=== PATIENT | female | born 2000 | race Caucasian/White ===

== ENCOUNTER 2023-09-28 15:35 | Outpatient (AMB) | payer BC, SELFPAY ==
[2023-09-28 15:38] VITALS: BP 120/90; PULSE 99; O2SAT 100; BMI 28.5
--- NOTE | 2023-09-28 15:38 | A.OFFPC_ITS ---
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 Previous PCP at [facility]. Medical history significant for depression, anxiety. Also reports last night started with left lower eyelid stye. Patient has a therapist for her mental health. Denies SI. Interested in antidepressant/antianxiety medication. Due for Pap smear. No shortness of breath or chest pain. [facility] Surgical History History of ankle surgery Family History Mother Hypertension Paternal Grandfather Diabetes Father No problems noted. Social History Housing: House Patient Tobacco Use Status: Never used Tobacco service: No Current occupational status: employed Cognitive needs: No Hearing needs: No Vision needs: No Questionnaire PHQ-9 Over the last 2 weeks, how often have you been bothered by any of the following problems? 1. Little interest or pleasure in doing things: not at all 2. Feeling down, depressed, or hopeless: nearly every day 3. Trouble falling or staying asleep, or sleeping too much: more than half the days (sleeping too much) 4. Feeling tired or having little energy: nearly every day 5. Poor appetite or overeating: several days 6. Feeling bad about yourself - or that you are a failure or have let yourself or your family down: several days 7. Trouble concentrating on things, such as reading the newspaper or watching television: not at all 8. Moving or speaking so slowly that other people could have noticed. Or the opposite - being so fidgety or restless that you have been moving around a lot more than usual: not at all 9. Thoughts that you would be better off or of hurting yourself in some way: not at all Total score: 10 Depression Screening Interpretation: Positive Depression Screening Follow-up: Existing condition Depression Screening Done: Yes 71323 - PHQ-9 Billing: Yes Source: Developed by Drs. Yanick Chino, Brittany Oates, Liu Wagner and colleagues, with an educational linda from [employer]. Thrive Questionnaire Date Thrive assessed: 09/28/23 I am a: Patient What is your living situation today?: I have a steady place to live Within the past 12 months, did the food you bought not last and you didn't have the money to get more?: Never true Within the past 12 months, did you worry whether your food would run out before you got money to buy more?: Never true Do you have trouble paying for medicines?: No Do you have trouble getting transportation to medical appointments?: No Do you have trouble paying your heating and electricity bill?: No Do you have trouble taking care of your child, family member or friend?: No Do you have trouble with day-to-day activities such as bathing, preparing meals, shopping, managing finances, etc.?: No Are you currently unemployed and looking for a job?: No Are you interested in more education?: No Currently or been in a relationship where the following occur: no concerns reported AUDIT C Alcohol Use Questionnaire (AUDIT-C) 1. How often do you have a drink containing alcohol?: 2-4 times a month 2. How many drinks containing alcohol do you have on a typical day when you are drinking?: 3 or 4 3. How often do you have six or more drinks on one occasion?: Never Total Score: 3 Score Reviewed/Action Taken: Yes JACK-7 AMB Questionnaire JACK-7 Date JACK - 7 assessed: 09/28/23 Feeling nervous, anxious, or on edge: 1 = Several days Not being able to stop or control worryin = Several days Worrying too much about different things: 1 = Several days Trouble relaxin = Several days Being so restless that it is hard to sit still: 1 = Several days Becoming easily annoyed or irritable: 0 = Not at all Feeling afraid as if something awful might happen: 0 = Not at all Total JACK-7 score (0-4 normal; 5-9 mild; 10-14 moderate; 15-21 severe): 5 Source: Developed by Drs. Yanick Chino, Brittany Oates, Liu Wagner and colleagues, with an educational linda from [employer]. JACK-7 Assessment Billing JACK-7 Assessment Tool: JACK-7 Assessment 39209 Review of Systems Const Denies body aches, Denies chills, Denies fever(s) and Denies headache(s) Eyes Reports as per HPI, Denies blurry vision and Denies change in vision ENT Denies dizziness, Denies otalgia, Denies headache(s), Denies nasal discharge, Denies sinus pain and Denies sore throat Card Denies chest pain, Denies edema, Denies lightheadedness and Denies dyspnea Resp Denies cough, Denies dyspnea and Denies wheezing GI Denies abdominal pain, Denies constipation, Denies diarrhea, Denies nausea and Denies vomiting Denies dysuria Musc Denies myalgias Skin/Breast Denies rash Neuro Denies dizziness and Denies headache(s) Psych Reports anxiety and Reports depression Aller/Immun Denies wheezing Physical exam (Primary Care) Vital Signs: Last Vital Signs Pulse 99 09/28/23 15:38 BP 120/82 09/28/23 16:10 Pulse Ox 100 09/28/23 15:38 Oxygen Delivery Method Room Air 09/28/23 15:38 BMI result Body Mass Index 28.5 Tobacco/Smoking Status: Tobacco use Status Tobacco use date assessed 09/28/23 09/28/23 15:40 Patient Tobacco Use Status Never used Tobacco 09/28/23 15:40 PHQ-9: PHQ-9 Score PHQ-9: Total score 10 09/28/23 16:02 Depression Screening Interpretation: Positive Depression Screening Follow-up: Existing condition Thrive Assessment: Date of Thrive Assessment Date Thrive assessed 12/15/23 12/15/23 15:40 Currently or been in a relationship where the following occur: no concerns reported Const General: cooperative and no acute distress Orientation/consciousness: patient oriented x3 HENMT Head: Yes normocephalic and Yes atraumatic Ears: TM's normal bilaterally Face and sinus: Yes sinuses nontender Mouth: oropharynx normal and moist mucous membranes Throat: Yes posterior oropharynx normal Eyes Other: Left lower eyelid stye noted, no discharge, mild tenderness, very mild erythema, no need for antibiotic at this time Pupils: Equal, round and reactive pupils present EOM: EOMs intact bilaterally Neck Neck: Yes normal visual inspection, Yes full ROM and Yes no lymphadenopathy Thyroid: Thyroid normal Resp Effort & Inspection: normal respiratory effort and able to speak in complete sentences Auscultation: clear to auscultation bilaterally, no crackles, no rales, no rhonchi and no wheezes Cardio Rate: regular rate Rhythm: regular rhythm Heart sounds: S1 normal heart sound present, S2 normal heart sound present and no murmurs GI Palpation (GI): Soft to palpation, not firm, nontender, no guarding, not rigid and no hepatosplenomegaly Auscultation: normal bowel sounds General: No CVA tenderness Back/Spine/Pelvis Back: No CVA tenderness Skin General skin exam: no rashes or lesions noted Neuro General: patient oriented x3 Cranial nerves: Yes Equal, round and reactive pupils present Gait exam (Neuro): Normal gait present Extrem General: Yes full ROM and No edema Office Procedures Flu Questionnaire Does the patient have a severe egg allergy?: No Does the patient have severe life threatening allergies?: No Does the patient have a fever or illness today?: No Has the patient ever had Guillain-[place] Syndrome?: No Has the patient ever had any past reaction to a flu shot?: No Immunizations flu vacc [id number] 6mos up(PF) 60 mcg(15 mcgx4)/0.5 mL IM syringe Performing Provider: HEMA Cardenas [facility] [place] [facility] Administered by: ADITI Baez on 09/28/23 15:55 Dose Route Admin Location Dispensed Lot Number Expiration Date NDC Liquefied Pet[employer] 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 p.r.n., notify office next week if no improvement Signs and symptoms reviewed when to notify provider go to the emergency department (2) Cervical cancer screening: Code(s): Z12.4 - Encounter for screening for malignant neoplasm of cervix (3) control counseling: Code(s): Z30.09 - Encounter for other general counseling and advice on contraception Plan: [facility] referral (4) Anxiety: Code(s): F41.9 - Anxiety disorder, unspecified Plan: Start hydroxyzine 10 mg b.i.d. p.r.n.-educated about drowsiness Continue to follow-up with therapist (5) Depression: Code(s): F32.A - Depression, unspecified Plan: Start sertraline 25 mg daily-educated about possible adverse reactions and when to notify provider Continue with therapist Follow-up in 6 weeks Denies SI (6) Encounter to establish care: Code(s): Z76.89 - Persons encountering health services in other specified circumstances Orders: Orders Influenza [id number] Immunization 09/28/23 Z23 - Encounter for immunization Vitamin D 25-OH Total 09/28/23 Z76.89 - Persons encountering health services in other specified circumstances TSH reflex Free T4 09/28/23 Z76.89 - Persons encountering health services in other specified circumstances Comprehensive Met. Panel 09/28/23 Z76.89 - Persons encountering health services in other specified circumstances Complete Blood Count Auto Diff 09/28/23 Z76.89 - Persons encountering health services in other specified circumstances Referrals OTHER SPORTS OFFICIAL Referral Z12.4 - Encounter for screening for malignant neoplasm of cervix, Z30.09 - Encounter for other general counseling and advice on contraception Medications: New sertraline 25 mg PO DAILY 30 tabs 2RF F32.A - Depression, unspecified, F41.9 - Anxiety disorder, unspecified hydroxyzine HCl 10 mg PO BID PRN 14 tabs 0RF anxiety F41.9 - Anxiety disorder, unspecified Coding Level of Care Code New Pt Level 4 (49661) Diagnoses Hordeolum externum left lower eyelid H00.015 Cervical cancer screening Z12.4 control counseling Z30.09 Anxiety F41.9 Depression F32.A Encounter to establish care Z76.89 Additional Codes JACK-7 Assessment Billing - JACK-7 Assessment Tool: JACK-7 Assessment 69288 ([id number])
[2023-09-28 16:10] VITALS: BP 120/82
== END 2023-09-28 16:20 | disposition home or self-care (01) ==
PROVIDERS: PCP Nurse Practitioner Family; Visit Provider Nurse Practitioner Family
DX: H00.015 Hordeolum externum left lower eyelid (principal); Z30.09 Encounter for other general counseling and advice on contraception; F41.9 Anxiety disorder, unspecified; F32.A Depression, unspecified; Z76.89 Persons encountering health services in other specified circumstances
CPT/HCPCS: 90471; 90686; 96127; 99204

== ENCOUNTER 2023-11-15 13:16 | Outpatient (AMB) | payer OTHER, SELFPAY ==
[2023-11-15 13:18] VITALS: BP 122/64; BMI 29.2
--- NOTE | 2023-11-15 13:18 | A.OFFVIS_ITS ---
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 The patient tells me she was on control pills by her zoology technical officer in the past and they worked pretty good for her she would like some kind of pill again she has not fussy about which 1. She works at [employer] in the [employer] she thinks she gets a lot of exercise running around there she is sexually active and she did have sex yesterday but she used a condom. She says she uses condoms all the time. She sometimes gets some chest pains which she says she has been told has to do with anxiety and she does have some measures to deal with that. She does not smoke cigarettes she is nervous about her 1st Pap smear. [facility] Surgical History History of ankle surgery Family History Mother Hypertension Paternal Grandfather Diabetes Father No problems noted. Social History (Updated 11/15/23 @ 13:21 by Kristi Ellis MA) Housing: House Alcohol intake: current Alcohol intake frequency: a few times a month Alcohol type: wine Patient Tobacco Use Status: Never used Tobacco service: No Current occupational status: employed Cognitive needs: No Hearing needs: No Vision needs: No Female Reproductive History Menstrual Age of Menarche: 13 Duration of menses: 3-5 days Date of last menstrual period: 10/31/23 control method: none Total pregnancies: 0 Physical Exam Vital Signs: Last Vital Signs BP 122/64 11/15/23 13:18 BMI result Body Mass Index 29.2 Assessment & Plan Assessment & Plan (1) Cervical cancer screening: Code(s): Z12.4 - Encounter for screening for malignant neoplasm of cervix (2) control counseling: Code(s): Z30.09 - Encounter for other general counseling and advice on contraception (3) Encounter for screening examination for sexually transmitted disease: Code(s): Z11.3 - Encounter for screening for infections with a predominantly sexual mode of transmission (4) Well woman exam with routine gynecological exam: Code(s): Z01.419 - Encounter for gynecological examination (general) (routine) without abnormal findings Plan -----Discussed in this visit the following: healthy balanced diet, regular and consistent exercise, getting recommended health screens, doing the best she can for her particular health concerns, kegel exercises, pap smear screening and followup recommendations, mammography screening and SBE, normal changes in cycles in her life stage--- . Discussed the control pills and how to take them and what to do if she forgets and backup method she is planning on still using condoms and I applauded this effort discussed protection from STIs though that condoms do not fully protect from HSV but they protect from other things. She has a primary care provider appointment next week I recommended considering testing for STIs and she agreed so I ordered those and in the computer it appeared that she had fasting labs that have been ordered in August or September by her primary care provider so she will probably do those next week before she sees her primary care provider. We will see her in 3 months to see how she is doing on the pills and do a blood pressure check. Orders: Orders Bacterial Vaginosis Panel Today Z01.419 - Encounter for gynecological examination (general) (routine) without abnormal findings Hepatitis B Surface Antigen Today Z11.3 - Encounter for screening for infections with a predominantly sexual mode of transmission, Z12.4 - Encounter for screening for malignant neoplasm of cervix, Z30.09 - Encounter for other general counseling and advice on contraception, Z36.3 - Encounter for scree vee for malformations CT NG by PCR Today Z01.419 - Encounter for gynecological examination (general) (routine) without abnormal findings Pap Smear Today Z01.419 - Encounter for gynecological examination (general) (routine) without abnormal findings Hepatitis C Antibody Today Z11.3 - Encounter for screening for infections with a predominantly sexual mode of transmission, Z12.4 - Encounter for screening for malignant neoplasm of cervix, Z30.09 - Encounter for other general counseling and advice on contraception, Z36.3 - Encounter for screening for malformations HIV Ab/Ag Today Z11.3 - Encounter for screening for infections with a predominantly sexual mode of transmission, Z12.4 - Encounter for screening for malignant neoplasm of cervix, Z30.09 - Encounter for other general counseling and advice on contraception, Z36.3 - Encounter for screening for malformations Syphilis Screen Today Z11.3 - Encounter for screening for infections with a predominantly sexual mode of transmission, Z12.4 - Encounter for screening for malignant neoplasm of cervix, Z30.09 - Encounter for other general counseling and advice on contraception, Z36.3 - Encounter for screening for malformations Medications: New desog-e.estradiol/e.estradiol 0.15-0.02 mgx21 /0.01 mg x 5 1 tab PO DAILY 84 tabs 3RF Coding Level of Care Code New Pt Prev Care 18-39yr([id number] Diagnoses Cervical cancer screening Z12.4 control counseling Z30.09 Encounter for screening examination for sexually transmitted disease Z11.3 Well woman exam with routine gynecological exam Z01.419
== END 2023-11-15 14:26 | disposition home or self-care (01) ==
LOC: HO.HWSM 13:16
PROVIDERS: PCP Nurse Practitioner Family; Visit Provider Advanced Practice Midwife
DX: Z01.419 Encounter for gynecological examination (general) (routine) without abnormal findings (principal); Z30.09 Encounter for other general counseling and advice on contraception
CPT/HCPCS: 99385

== ENCOUNTER 2023-11-15 13:16 | Outpatient (REF) | payer OTHER, SELFPAY ==
[2023-11-16 02:49] LABS: CT PCR NOT DETECTED (Not Detect.); NG PCR NOT DETECTED (Not Detect.)
[2023-11-16 14:00] LABS: BV Int Neg Control Negative (Negative); BV Int Pos Control Positive (Positive)
== END 2023-11-15 13:17 | disposition home or self-care (01) ==
LOC: HO.LNP 13:16
PROVIDERS: PCP Nurse Practitioner Family; Visit Provider Advanced Practice Midwife
DX: Z01.419 Encounter for gynecological examination (general) (routine) without abnormal findings (principal); Z20.2 Contact with and (suspected) exposure to infections with a predominantly sexual mode of transmission
CPT/HCPCS: 0353U; 87480; 87510; 87660; 88142

== ENCOUNTER 2023-11-20 13:23 | Outpatient (AMB) | payer OTHER, SELFPAY ==
[2023-11-20 13:25] VITALS: BP 112/80; BMI 27.8
--- NOTE | 2023-11-20 13:25 | A.OFFPC_ITS ---
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 Required: No Accompanied by: Mother Allergies No Known Allergies Allergy (Verified 11/20/23 13:37) Medication List - Last Reconciled 11/20/23 by Gabriela Montano MD desog-e.estradiol/e.estradiol 0.15-0.02 mgx21 /0.01 mg x 5 1 tab PO DAILY hydroxyzine HCl 10 mg PO BID PRN metronidazole 500 mg PO BID 7 days sertraline 25 mg PO DAILY Tobacco use date assessed: 11/20/23 Dental Screening Dental Screen Date: 11/20/23 Did you have a dental visit in the last 12 months?: No Did you have a dental problem in the last 6 months where you did not have access to dental care?: No Was dental information given to patient?: Patient has dentist HPI HPI Comments History of Present Illness Details This is a 23-year-old female with mild major depression and anxiety that comes accompanied by mother for follow-up on her depression. Depression and anxiety both have improved with sertraline but feels that she needs amlodipine more and therefore I will increase sertraline from 25 mg to 50 mg. Patient was advised that if she feels any side effects she can go back to the 25 mg. Agree and understood. She also follows with a counselor. [facility] Surgical History History of ankle surgery Family History (Updated 11/20/23 @ 13:28 by ADITI Conner) Mother Hypertension Paternal Grandfather Diabetes Father No problems noted. Social History Housing: House Alcohol intake: current Alcohol intake frequency: a few times a month Alcohol type: wine Patient Tobacco Use Status: Never used Tobacco e-Cigarette/Vaping Use: Currently Using Second Hand Smoke Exposure: Yes service: No Current occupational status: employed Current occupational exposures/hazards: No Cognitive needs: No Hearing needs: No Vision needs: No Female Reproductive History Menstrual Age of Menarche: 13 Questionnaire PHQ-9 Over the last 2 weeks, how often have you been bothered by any of the following problems? 1. Little interest or pleasure in doing things: several days 2. Feeling down, depressed, or hopeless: several days 3. Trouble falling or staying asleep, or sleeping too much: more than half the days 4. Feeling tired or having little energy: nearly every day 5. Poor appetite or overeating: not at all 6. Feeling bad about yourself - or that you are a failure or have let yourself or your family down: several days 7. Trouble concentrating on things, such as reading the newspaper or watching television: not at all 8. Moving or speaking so slowly that other people could have noticed. Or the opposite - being so fidgety or restless that you have been moving around a lot more than usual: several days 9. Thoughts that you would be better off or of hurting yourself in some way: not at all Total score: 9 Depression Screening Interpretation: Positive Depression Screening Follow-up: Existing condition and Community Mental Health Worker F/U Depression Screening Done: Yes 15843 - PHQ-9 Billing: Yes Source: Developed by Drs. Yanick Chino, Brittany Oates, Liu Wagner and colleagues, with an educational linda from [employer]. Thrive Questionnaire Date Thrive assessed: 11/20/23 I am a: Patient What is your living situation today?: I have a steady place to live Within the past 12 months, did the food you bought not last and you didn't have the money to get more?: Never true Within the past 12 months, did you worry whether your food would run out before you got money to buy more?: Never true Do you have trouble paying for medicines?: No Do you have trouble getting transportation to medical appointments?: No Do you have trouble paying your heating and electricity bill?: No Do you have trouble taking care of your child, family member or friend?: No Do you have trouble with day-to-day activities such as bathing, preparing meals, shopping, managing finances, etc.?: No Are you currently unemployed and looking for a job?: No Are you interested in more education?: No Please select the resources that you would like help with: None Currently or been in a relationship where the following occur: no concerns reported THRIVE Score: 0 AUDIT C Alcohol Use Questionnaire (AUDIT-C) 1. How often do you have a drink containing alcohol?: Monthly or less 2. How many drinks containing alcohol do you have on a typical day when you are drinking?: 1 or 2 3. How often do you have six or more drinks on one occasion?: Never Total Score: 1 Score Reviewed/Action Taken: No JACK-7 AMB Questionnaire JACK-7 Date JACK - 7 assessed: 11/20/23 Feeling nervous, anxious, or on edge: 1 = Several days Not being able to stop or control worryin = Several days Worrying too much about different things: 1 = Several days Trouble relaxin = Several days Being so restless that it is hard to sit still: 0 = Not at all Becoming easily annoyed or irritable: 3 = Nearly every day Feeling afraid as if something awful might happen: 1 = Several days Total JACK-7 score (0-4 normal; 5-9 mild; 10-14 moderate; 15-21 severe): 8 Source: Developed by Drs. Yanick Chino, Brittany Oates, Liu Wagner and colleagues, with an educational linda from [employer]. JACK-7 Assessment Billing JACK-7 Assessment Tool: JACK-7 Assessment 36532 Review of Systems Const All systems reviewed & are unremarkable except as noted in HPI and below Eyes Reports no additional complaints, Denies change in vision and Denies other visual disturbances Card Denies chest pain at rest, Denies chest pain with activity, Denies edema, Denies irregular heart rhythm, Denies claudication, Denies dyspnea, Denies dyspnea on exertion, Denies orthopnea, Denies paroxysmal nocturnal dyspnea and Denies slow heart rate Resp Denies cough, Denies dyspnea and Denies dyspnea on exertion GI Denies abdominal pain, Denies change in bowel habits, Denies excessive flatus, Denies nausea and Denies vomiting Denies urinary incontinence, Denies urinary hesitancy and Denies urinary urgency Musc Denies abnormal gait, Denies atrophy, Denies deformity and Denies limited range of motion Skin/Breast Denies bleeding lesions, Denies changing lesions and Denies rash Neuro Denies abnormal gait, Denies behavioral changes and Denies lack of coordination Psych Denies behavioral changes Physical exam (Primary Care) Vital Signs: Last Vital Signs BP 112/80 11/20/23 13:25 BMI result Body Mass Index 27.8 Tobacco/Smoking Status: Tobacco use Status Tobacco use date assessed 11/20/23 11/20/23 13:32 Patient Tobacco Use Status Never used Tobacco 11/20/23 13:32 e-Cigarette/Vaping Use Currently Using 11/20/23 13:32 PHQ-9: PHQ-9 Score PHQ-9: Total score 9 11/20/23 13:40 Depression Screening Interpretation: Positive Depression Screening Follow-up: Existing condition and Community Mental Health Worker F/U Thrive Assessment: Date of Thrive Assessment Date Thrive assessed 11/20/23 11/20/23 13:32 Currently or been in a relationship where the following occur: no concerns reported Eyes General: appearance normal, both eyes and all related structures Eyelids: Yes eyelids normal Conjunctivae: conjunctivae normal Neck Neck: Yes normal visual inspection and Yes supple Resp Effort & Inspection: normal respiratory effort Auscultation: clear to auscultation bilaterally Cardio Jugular venous distension: no JVD Rate: regular rate Rhythm: regular rhythm Heart sounds: S1 normal heart sound present and S2 normal heart sound present Extrem General: Yes full ROM Assessment and Plan Assessment & Plan (1) Mild major depression: Code(s): F32.0 - Major depressive disorder, single episode, mild Plan: Increase sertraline to 50 mg. Continue counseling. (2) Anxiety: Code(s): F41.9 - Anxiety disorder, unspecified Plan: Increase sertraline to 50 mg. Continue counseling. Medications: New sertraline 50 mg PO DAILY 90 tabs 0RF 90 days Discontinued sertraline Discontinued Reason: Patient Completed Course 25 mg PO DAILY 30 tabs 2RF F32.A - Depression, unspecified, F41.9 - Anxiety disorder, unspecified Coding Level of Care Code Est Pt Level 3 (36094) Diagnoses Mild major depression F32.0 Anxiety F41.9 Additional Codes JACK-7 Assessment Billing - JACK-7 Assessment Tool: JACK-7 Assessment 42946 ([id number]) Time Spent (min) 19
== END 2023-11-20 13:45 | disposition home or self-care (01) ==
PROVIDERS: PCP Nurse Practitioner Family; Visit Provider Internal Medicine
DX: F32.0 Major depressive disorder, single episode, mild (principal); F41.9 Anxiety disorder, unspecified
CPT/HCPCS: 96127; 99213

== ENCOUNTER 2023-11-20 13:51 | Outpatient (REF) | payer OTHER, SELFPAY ==
[2023-11-20 14:03] LABS: MANUAL DIFF FLAG NO
[2023-11-20 14:15] LABS: Basophils Absolute Auto 0.1 X10*3/uL (0.0-0.2); Basophils Percent Auto 0.6 % (0-2); Eosinophils Absolute Auto 0.2 X10*3/uL (0.0-0.4); Hematocrit 36.8 % (37.0-47.0); Hemoglobin 12.3 g/dl (12.0-16.0); Imm Gran Abs Auto 0.03 X10*3/uL (0.00-0.03); Imm Gran Pct Auto 0.3 % (0.0-0.4); Lymphocytes Absolute Auto 3.1 X10*3/uL (1.2-4.9); Lymphocytes Percent Auto 34.7 % (20-40); Mean Corpuscular HGB Conc 33.4 g/dl (31.0-35.0); Mean Corpuscular Hemoglobin 29.4 pg (27.0-33.0); Mean Corpuscular Volume 87.8 fL (80.0-98.0); Mean Platelet Volume 10.8 fL (9.4-12.3); Monocytes Absolute Auto 0.8 X10*3/uL (0.1-1.2); Monocytes Percent Auto 8.9 % (2-11); Neutrophils Absolute Auto 4.8 x10*3/uL (2.0-8.3); Neutrophils Percent Auto 53.5 % (45-73); Platelet Count 235 X10*3/uL (160-400); Red Blood Count 4.19 X10*6/uL (4.20-5.50)
[2023-11-20 14:46] LABS: Alanine Aminotransferase 16 U/L (0-31); Albumin Level 4.2 g/dL (3.5-5.0); Alkaline Phosphatase 48 U/L (39-117); Anion Gap 10 (12-20); Aspartate Amino Transferase 15 U/L (5-31); Bilirubin Total 0.3 mg/dL (0.0-1.0); Blood Urea Nitrogen 9 mg/dL (9-16); Calcium 9.2 mg/dL (8.4-10.2); Carbon Dioxide 25 mmol/L (22-29); Chloride 110 mmol/L (96-108); Estimated Glomerular Filt Rate > 60; Glucose Random 85 mg/dL (60-115); Potassium 4.1 mmol/L (3.3-5.1); Sodium 141 mmol/L (135-145); Total Protein 7.5 g/dL (6.5-8.0)
[2023-11-20 15:02] LABS: TSH reflex Free T4 0.54 uIU/mL (0.32-4.0); Vitamin D 25-OH Total 8.5 ng/mL (>30)
[2023-11-21 05:03] LABS: Syphilis Screen Nonreactive (Nonreactive)
[2023-11-21 07:37] LABS: HBsAGNum1 0.38 S/CO (0.00-0.99); HIV AB/AG Nonreactive (Nonreactive); HIV Num 1 0.05 S/CO (0.00-0.99); Hepatitis B Surface Antigen Negative (Negative); ~HepC Num1 0.09 S/CO (0.00-0.79); ~Hepatitis C Antibody Nonreactive (Nonreactive)
== END 2023-11-20 13:52 | disposition home or self-care (01) ==
LOC: HO.LAB 13:51
PROVIDERS: Absent Provider Advanced Practice Midwife; PCP Internal Medicine; Visit Provider Nurse Practitioner Family
DX: Z11.4 Encounter for screening for human immunodeficiency virus [HIV] (principal); Z20.2 Contact with and (suspected) exposure to infections with a predominantly sexual mode of transmission; Z76.89 Persons encountering health services in other specified circumstances
CPT/HCPCS: 36415; 80053; 82306; 84443; 85025; 86780; 86803; 87340; 87389

== ENCOUNTER 2024-07-01 14:09 | Outpatient (AMB) | payer OTHER, SELFPAY ==
[2024-07-01 14:26] VITALS: BP 122/80; BMI 28.7
--- NOTE | 2024-07-01 14:26 | A.OFFPC_ITS ---
Vital Signs 07/01/24 14:26 Height 5 ft 4.96 in Weight 172 lb BMI 28.7 BP 122/80 Blood Pressure Location Lt brachial Position Sitting Intake Visit Reasons: ANNUAL Intake Note: Patient here for a Annual Physical Exam Sock Mender Required: No Accompanied by: Self / Same As Patient Allergies No Known Allergies Allergy (Verified 07/01/24 14:47) Medication List - Last Reconciled 07/01/24 by Gabriela Montano MD cholecalciferol (vitamin D3) 50 mcg PO DAILY 90 days desog-e.estradiol/e.estradiol 0.15-0.02 mgx21 /0.01 mg x 5 1 tab PO DAILY hydroxyzine HCl 10 mg PO BID PRN sertraline 50 mg PO DAILY 90 days Tobacco use date assessed: 11/20/23 Dental Screening Dental Screen Date: 11/20/23 HPI HPI Comments History of Present Illness Details This is a 23-year-old female with mild major depression that comes for her physical exam. Depression stable with counseling. Pap smear done 2023 was normal. Denies any chest pain or shortness on breath. No change in bowel or bladder habits. [facility] Surgical History History of ankle surgery Family History Mother Hypertension Paternal Grandfather Diabetes Father No problems noted. Social History Housing: House Alcohol intake: current Alcohol intake frequency: a few times a month Alcohol type: wine Patient Tobacco Use Status: Never used Tobacco e-Cigarette/Vaping Use: Currently Using Second Hand Smoke Exposure: Yes service: No Current occupational status: employed Current occupational exposures/hazards: No Cognitive needs: No Hearing needs: No Vision needs: No Female Reproductive History Menstrual Age of Menarche: 13 Questionnaire PHQ-9 Over the last 2 weeks, how often have you been bothered by any of the following problems? 1. Little interest or pleasure in doing things: several days 2. Feeling down, depressed, or hopeless: several days 3. Trouble falling or staying asleep, or sleeping too much: nearly every day 4. Feeling tired or having little energy: nearly every day 5. Poor appetite or overeating: several days 6. Feeling bad about yourself - or that you are a failure or have let yourself or your family down: several days 7. Trouble concentrating on things, such as reading the newspaper or watching television: several days 8. Moving or speaking so slowly that other people could have noticed. Or the opposite - being so fidgety or restless that you have been moving around a lot more than usual: several days 9. Thoughts that you would be better off or of hurting yourself in some way: not at all Total score: 12 Depression Screening Interpretation: Positive Depression Screening Follow-up: Existing condition, In treatment, Community Mental Health Worker F/U and Follow- up Visit Requested Depression Screening Done: Yes 69284 - PHQ-9 Billing: Yes Source: Developed by Drs. Yanick Chino, Brittany Oates, Liu Wagner and colleagues, with an educational linda from [employer]. Thrive Questionnaire Date Thrive assessed: 07/01/24 I am a: Patient What is your living situation today?: I have a steady place to live Within the past 12 months, did the food you bought not last and you didn't have the money to get more?: Sometimes True Within the past 12 months, did you worry whether your food would run out before you got money to buy more?: Never true Do you have trouble paying for medicines?: No Do you have trouble getting transportation to medical appointments?: No Do you have trouble paying your heating and electricity bill?: No Do you have trouble taking care of your child, family member or friend?: No Do you have trouble with day-to-day activities such as bathing, preparing meals, shopping, managing finances, etc.?: No Are you currently unemployed and looking for a job?: No Are you interested in more education?: I choose not to answer this question Please select the resources that you would like help with: None Currently or been in a relationship where the following occur: No concerns reported THRIVE Score: 1 AUDIT C Alcohol Use Questionnaire (AUDIT-C) 1. How often do you have a drink containing alcohol?: 2-4 times a month 2. How many drinks containing alcohol do you have on a typical day when you are drinking?: 1 or 2 3. How often do you have six or more drinks on one occasion?: Less than monthly Total Score: 3 JACK-7 AMB Questionnaire JACK-7 Date JACK - 7 assessed: 07/01/24 Feeling nervous, anxious, or on edge: 2 = More than half the days Not being able to stop or control worryin = More than half the days Worrying too much about different things: 3 = Nearly every day Trouble relaxin = Several days Being so restless that it is hard to sit still: 1 = Several days Becoming easily annoyed or irritable: 3 = Nearly every day Feeling afraid as if something awful might happen: 1 = Several days Total JACK-7 score (0-4 normal; 5-9 mild; 10-14 moderate; 15-21 severe): 13 Source: Developed by Drs. Yanick Chino, Brittany Oates, Liu Wagner and colleagues, with an educational linda from [employer]. JACK-7 Assessment Billing JACK-7 Assessment Tool: JACK-7 Assessment 42047 Review of Systems Const All systems reviewed & are unremarkable except as noted in HPI and below Card Denies chest pain at rest, Denies chest pain with activity, Denies edema, Denies irregular heart rhythm, Denies claudication, Denies dyspnea, Denies dyspnea on exertion, Denies orthopnea, Denies paroxysmal nocturnal dyspnea and Denies slow heart rate Resp Denies cough, Denies dyspnea and Denies dyspnea on exertion GI Denies abdominal pain, Denies change in bowel habits, Denies excessive flatus, Denies nausea and Denies vomiting Denies urinary incontinence, Denies urinary hesitancy and Denies urinary urgency Musc Denies atrophy, Denies deformity and Denies limited range of motion Skin/Breast Denies bleeding lesions, Denies changing lesions and Denies rash Physical exam (Primary Care) Vital Signs: Last Vital Signs BP 122/80 07/01/24 14:26 BMI result Body Mass Index 28.7 Tobacco/Smoking Status: Tobacco use Status Tobacco use date assessed 11/20/23 07/01/24 14:33 Patient Tobacco Use Status Never used Tobacco 07/01/24 14:33 e-Cigarette/Vaping Use Currently Using 07/01/24 14:33 PHQ-9: PHQ-9 Score PHQ-9: Total score 12 07/01/24 15:03 Depression Screening Interpretation: Positive Depression Screening Follow-up: Existing condition, In treatment, Community Mental Health Worker F/U and Follow- up Visit Requested Thrive Assessment: Date of Thrive Assessment Date Thrive assessed 07/01/24 07/01/24 14:33 Currently or been in a relationship where the following occur: No concerns reported HENMT Head: Yes normal to inspection, Yes normocephalic and Yes atraumatic Ears: external ears normal Eyes General: appearance normal, both eyes and all related structures Eyelids: Yes eyelids normal Conjunctivae: conjunctivae normal Neck Neck: Yes normal visual inspection and Yes supple Resp Effort & Inspection: normal respiratory effort Auscultation: clear to auscultation bilaterally Cardio Jugular venous distension: no JVD Rate: regular rate Rhythm: regular rhythm Heart sounds: S1 normal heart sound present and S2 normal heart sound present GI Inspection: Yes normal to inspection Palpation (GI): Soft to palpation and nontender Auscultation: normal bowel sounds Skin General skin exam: no rashes or lesions noted Neuro General: no focal motor deficits Extrem General: Yes full ROM Psych Appearance: grossly normal Immunizations Boostrix Tdap 2.5 Lf unit-8 mcg-5 Lf/0.5 mL intramuscular syringe Performing Provider: Gabriela Montano MD Performing Location: [facility] [place] [facility] Administered by: ADITI Conner on 07/01/24 15:04 Dose Route Admin Location Dispensed Lot Number Expiration Date NDC Sandwich Counter Attendant 0.5 mL IM Left Deltoid 0.5 mL [id number] 08/03/26 90518-471-83 [facility] V[facility] Given Date VIS Provided VIS Publication Date 07/01/24 Single Vaccine 21 Eligibility Eligibility Date Funding Source Not [facility] Eligible 07/01/24 Private Assessment and Plan Assessment & Plan (1) Physical exam: Code(s): Z00.00 - Encounter for general adult medical examination without abnormal findings Plan: Physical exam. (2) Mild major depression: Code(s): F32.0 - Major depressive disorder, single episode, mild Plan: Continue SSRIs. Continue counseling. Orders: Orders Vitamin D 25-OH (D2 and D3) Today E55.9 - Vitamin D deficiency, unspecified Comprehensive [place]. Panel Fast Today Z00.00 - Encounter for general adult medical examination without abnormal findings Lipid Panel Today Z00.00 - Encounter for general adult medical examination without abnormal findings TDaP Immunization Today Z23 - Encounter for immunization Coding Level of Care Code Est Pt Prev Care 18-39y(87298) Diagnoses Physical exam Z00.00 Mild major depression F32.0 Additional Codes JACK-7 Assessment Billing - JACK-7 Assessment Tool: JACK-7 Assessment 41599 ([id number]) Time Spent (min) 30
== END 2024-07-01 15:04 | disposition home or self-care (01) ==
PROVIDERS: PCP Internal Medicine; Visit Provider Internal Medicine
DX: Z00.00 Encounter for general adult medical examination without abnormal findings (principal); F32.0 Major depressive disorder, single episode, mild; Z23 Encounter for immunization

== ENCOUNTER → 2024-07-01 14:09 | Outpatient (BNVA) | payer OTHER, SELFPAY | PROVIDERS: PCP Internal Medicine; Visit Provider Internal Medicine | DX: Z00.00 Encounter for general adult medical examination without abnormal findings (principal); F32.0 Major depressive disorder, single episode, mild; Z79.899 Other long term (current) drug therapy; Z23 Encounter for immunization | CPT/HCPCS: 90471; 90715; 96127 ==